=== PATIENT | male | born 1955 | race Caucasian/White ===

== ENCOUNTER 2023-12-18 06:47 | Outpatient (REF) | payer MEDICARE, SELFPAY ==
[2023-12-18 10:11] LABS: MANUAL DIFF FLAG NO
[2023-12-18 10:22] LABS: Basophils Percent Auto 0.6 % (0-2); Eosinophils Absolute Auto 0.3 X10*3/uL (0.0-0.4); Eosinophils Percent Auto 5.4 % (0-4); Hematocrit 45.4 % (42.0-52.0); Imm Gran Abs Auto 0.01 X10*3/uL (0.00-0.03); Imm Gran Pct Auto 0.2 % (0.0-0.4); Lymphocytes Absolute Auto 1.8 X10*3/uL (1.2-4.9); Lymphocytes Percent Auto 33.2 % (20-40); Mean Corpuscular Hemoglobin 30.7 pg (27.0-33.0); Mean Platelet Volume 10.1 fL (9.4-12.4); Monocytes Absolute Auto 0.4 X10*3/uL (0.1-1.2); Monocytes Percent Auto 7.4 % (2-11); Neutrophils Absolute Auto 2.9 x10*3/uL (2.0-8.3); Neutrophils Percent Auto 53.2 % (45-73); Platelet Count 233 X10*3/uL (160-400); Red Blood Count 4.88 X10*6/uL (4.60-5.80); Red Cell Distribution Width 13.7 % (11.0-16.0); White Blood Count 5.4 X10*3/uL (4.8-10.8)
[2023-12-18 10:42] LABS: Alanine Aminotransferase 31 U/L (0-40); Albumin Level 4.2 g/dL (3.5-5.0); Alkaline Phosphatase 73 U/L (39-117); Anion Gap 11 (12-20); Aspartate Amino Transferase 20 U/L (5-37); Bilirubin Total 0.4 mg/dL (0.0-1.0); Blood Urea Nitrogen 19 mg/dL (9-16); Calcium 9.5 mg/dL (8.4-10.2); Carbon Dioxide 27 mmol/L (22-29); Chloride 107 mmol/L (96-108); Cholesterol 143 mg/dL (<200); Estimated Glomerular Filt Rate > 60; Glucose Fasting 88 mg/dL (60-99); HDL Cholesterol 46 mg/dL (>40); LDL Cholesterol Calculated 77 mg/dL (<100); Potassium 3.9 mmol/L (3.3-5.1); Sodium 141 mmol/L (135-145); Total Protein 7.1 g/dL (6.5-8.0); Triglycerides 104 mg/dL (<150)
[2023-12-18 10:54] LABS: Prostate Specific Antigen 3.46 ng/mL (<0.05-4.0)
== END 2023-12-18 06:48 | disposition home or self-care (01) ==
LOC: HO.HMGCLDS 06:47
PROVIDERS: PCP Internal Medicine; Visit Provider Internal Medicine
DX: Z00.00 Encounter for general adult medical examination without abnormal findings (principal); R53.83 Other fatigue; E78.5 Hyperlipidemia, unspecified; Z12.5 Encounter for screening for malignant neoplasm of prostate
CPT/HCPCS: 36415; 80053; 80061; 84153; 85025

== ENCOUNTER 2025-01-21 08:30 | Outpatient (AMB) | payer MEDICARE, SELFPAY ==
--- NOTE | 2025-01-21 08:44 | A.OFFPC_ITS ---
Vital Signs 01/21/25 08:50 Height 5 ft 10.47 in Weight 205 lb BMI 29.0 BP 153/79 H Blood Pressure Location Rt femoral Position Sitting Respiration 17 Pulse 63 Pulse Source Pulse Oximeter Temp 97.3 F Temp Source Temporal Artery Scan Pulse Oximetry (%) 96 Oxygen Delivery Method Room Air Intake Visit Reasons: physical Children'S Aide Required: No Accompanied by: Self / Same As Patient Allergies Penicillins Allergy (Intermediate, Verified 01/21/25 08:46) HALLUCIATIONS penicillin V Allergy (Unknown, Verified 01/21/25 08:46) hives Tobacco use date assessed: 01/21/25 Fall risk assessment: No Falls in past year Last assessed Fall Risk: 01/21/25 Dental Screening Dental Screen Date: 01/21/25 Did you have a dental visit in the last 12 months?: Yes Did you have a dental problem in the last 6 months where you did not have access to dental care?: No Was dental information given to patient?: Patient has dentist [facility] Medical History (Updated 01/21/25 @ 09:15 by Pierre Wheeler MD) Headache Hyperlipidemia Surgical History (Updated 12/02/24 @ 14:12 by Jud Alvarez) History of colonoscopy (~06/01/15) Family History (Updated 01/21/25 @ 08:48 by Dom Gonzales MA) Father Heart attack Mother History of angina Social History (Updated 01/21/25 @ 08:49 by Dom Gonzales MA) Housing: House Alcohol intake: current Alcohol intake frequency: holidays/special occasions only Patient Tobacco Use Status: Never used Tobacco service: No Current occupational status: retired Cognitive needs: No Hearing needs: No Vision needs: Yes (rx glasses) Questionnaire PHQ-9 Over the last 2 weeks, how often have you been bothered by any of the following problems? 1. Little interest or pleasure in doing things: not at all 2. Feeling down, depressed, or hopeless: not at all 3. Trouble falling or staying asleep, or sleeping too much: not at all 4. Feeling tired or having little energy: not at all 5. Poor appetite or overeating: not at all 6. Feeling bad about yourself - or that you are a failure or have let yourself or your family down: not at all 7. Trouble concentrating on things, such as reading the newspaper or watching television: not at all 8. Moving or speaking so slowly that other people could have noticed. Or the opposite - being so fidgety or restless that you have been moving around a lot more than usual: not at all 9. Thoughts that you would be better off or of hurting yourself in some way: not at all Total score: 0 Source: Developed by Drs. Justin Wayne, Lauren Ceballos, Rivas Mcnamara and colleagues, with an educational diya from [employer]. Thrive Questionnaire Date Thrive assessed: 01/21/25 I am a: Patient What is your living situation today?: I have a steady place to live Within the past 12 months, did the food you bought not last and you didn't have the money to get more?: Never true Within the past 12 months, did you worry whether your food would run out before you got money to buy more?: Never true Do you have trouble paying for medicines?: No Do you have trouble getting transportation to medical appointments?: No Do you have trouble paying your heating and electricity bill?: No Do you have trouble taking care of your child, family member or friend?: No Do you have trouble with day-to-day activities such as bathing, preparing meals, shopping, managing finances, etc.?: No Are you currently unemployed and looking for a job?: No Are you interested in more education?: No Please select the resources that you would like help with: None Currently or been in a relationship where the following occur: No concerns reported THRIVE Score: 0 AUDIT C Alcohol Use Questionnaire (AUDIT-C) 1. How often do you have a drink containing alcohol?: Monthly or less 2. How many drinks containing alcohol do you have on a typical day when you are drinking?: 1 or 2 3. How often do you have six or more drinks on one occasion?: Never Total Score: 1 BEATRIZ-7 AMB Questionnaire BEATRIZ-7 Date BEATRIZ - 7 assessed: 01/21/25 Feeling nervous, anxious, or on edge: 0 = Not at all Not being able to stop or control worryin = Not at all Worrying too much about different things: 0 = Not at all Trouble relaxin = Not at all Being so restless that it is hard to sit still: 0 = Not at all Becoming easily annoyed or irritable: 0 = Not at all Feeling afraid as if something awful might happen: 0 = Not at all Total BEATRIZ-7 score (0-4 normal; 5-9 mild; 10-14 moderate; 15-21 severe): 0 Source: Developed by Drs. Justin Wayne, Lauren Ceballos, Rivas Mcnamara and colleagues, with an educational diya from [employer]. Physical exam (Primary Care) Vital Signs: Last Vital Signs Temp 97.3 F 01/21/25 08:50 Pulse 63 01/21/25 08:50 Resp 17 01/21/25 08:50 BP 153/79 H 01/21/25 08:50 Pulse Ox 96 01/21/25 08:50 Oxygen Delivery Method Room Air 01/21/25 08:50 BMI result Body Mass Index 29.0 Tobacco/Smoking Status: Tobacco use Status Tobacco use date assessed 01/21/25 01/21/25 08:52 Patient Tobacco Use Status Never used Tobacco 01/21/25 08:52 PHQ-9: PHQ-9 Score PHQ-9: Total score 0 01/21/25 08:52 Thrive Assessment: Date of Thrive Assessment Date Thrive assessed 01/21/25 01/21/25 08:52 Currently or been in a relationship where the following occur: No concerns reported Coding Level of Care Code New Pt Level 4 (52545) New Pt Prev Care >65yr (10690) Diagnoses Hyperlipidemia E78.5 Headache R51.9 Assessment & Plan Assessment & Plan (1) Hyperlipidemia: Code(s): E78.5 - Hyperlipidemia, unspecified Category: Medical Plan: BW has been ordered. Will call with results (2) Headache: Code(s): R51.9 - Headache, unspecified Category: Medical Plan: CT head ordered. Trial of Meloxicam. Patient will report via portal about his symptoms Plan History of Present Illness - The patient is a 69-year-old male presenting with headaches and requesting a physical - He experiences headaches three to four times weekly, less severe than previous migraines, which were managed with medication from Dr. Peterson. - Current management includes Tylenol, effective if taken early, sometimes requiring a second dose. - Denies vision changes or sleep disturbances due to headaches, though occasionally wakes with a headache. - No recent testing for headaches. - Previously took statins, stopped due to side effects and borderline cholesterol. - Regular prostate checks normal; colonoscopy in 2016, Cologuard planned next year. Social History - Employment: Previously worked in a [employer], involving heavy lifting, which contributed to good physical condition. Review of Systems - Neurological: Reports headaches three to four times a week, less intense than migraines. Denies changes in vision or sleep disturbances due to headaches. Physical Exam General: Cooperative and healthy appearing Nutritional Appearance: Well nourished Orientation/consciousness: Patient oriented x3 Limitations: No limitations Head: Normal to inspection General: Appearance normal, both eyes and all related structures Neck: Normal visual inspection Chest: Normal palpation of entire chest wall Respiratory: N ormal respiratory effort Neurology: Patient oriented x3, reports frequent headaches occurring three to four times a week, with migraines reduced to once a month. Headaches are less intense than migraines and do not interrupt sleep. Tylenol is effective if taken early. CT of the head ordered to investigate headaches further. Results Plan 1. Headaches - Plan includes a CT scan of the head without contrast to exclude any underlying pathology. - Prescribe medication to be taken at the onset of headaches. 2. Migraine - Previously managed with medication from Dr. Peterson, currently using Tylenol as needed. Discussion Notes I discussed with the patient the plan to perform a CT scan of the head to rule out any serious underlying conditions causing the headaches. I explained that the scan is a simple procedure without contrast and should take about 10 minutes. Additionally, I will prescribe medication to be taken at the onset of headaches to manage symptoms effectively. We also discussed the importance of monitoring cholesterol levels and the plan for a Cologuard test next year for colon cancer screening. Patient Instructions - Schedule and complete a CT scan of the head as advised. - Take prescribed medication at the onset of headaches. - Complete fasting blood work as discussed. - Plan for a Cologuard test next year for colon cancer screening. Orders: Orders Complete Blood Count no Diff Today E78.5 - Hyperlipidemia, unspecified Lipid Panel Today E78.5 - Hyperlipidemia, unspecified Thyroid Stimulating Hormone Today E78.5 - Hyperlipidemia, unspecified UA and rflx microscopic Today E78.5 - Hyperlipidemia, unspecified Basic Metabolic Panel Today E78.5 - Hyperlipidemia, unspecified Liver Panel Today E78.5 - Hyperlipidemia, unspecified Prostate Specific Antigen Scr Today E78.5 - Hyperlipidemia, unspecified CT head/brain wo IV con Today R51.9 - Headache, unspecified Medications: New meloxicam 15 mg PO DAILY 14 tabs 0RF
[2025-01-21 08:50] VITALS: BP 153/79; PULSE 63; RESP 17; TEMP 36.3; O2SAT 96; BMI 29.0
--- OUTSIDE RECORDS SUMMARY | 2025-01-21 09:07 | XMS_ITS | Encounter Summary ---
Author Organization [facility] Address [address] [place] [address] Phone Care Team Providers Care Track Greaser Name Role Phone Jay Jay Peterson MD Primary Care Provider +1- [phone] Encounter Details Date Type Department Care Team (Late st Contact Info) Description 08/30/2022 Procedure Pass JOSHUA LW PERIOP DEPT [address] [place] [address] Social History Tobacco Use Types Packs/Day Years Used Date Smoking Tobacco: Never Smokeless Tobacco: Never Sex and Gender Information Value Date Recorded Sex Assigned at Not on file Legal Sex Male 11:52 AM EDT Gender Identity Not on file Sexual Orientation Not on file documented as of this encounter Plan of Treatment Not on file documented as of this encounter Visit Diagnoses Not on filedocumented in this encounter Care Teams Track Greaser Relationship Specialty Start Date End Date Jay Jay Peterson MD [address] [place] [address] PCP - General Internal Medicine 08/09/22 documented as of this encounter Additional Source Comments The information contained in this document represents components of the legal health record. It is not the complete legal health record.[facility]
--- OUTSIDE RECORDS SUMMARY | 2025-01-21 09:07 | XMS_ITS | Patient Health Record ---
Author Organization [facility] Address [address] [place] [address] Care Team Providers Care Airworthiness Safety Inspector Name Role Phone Kristen (RETIRED) Jay Jay KAY Primary Care Provider Unavailable Justin Montgomery Unavailable [phone] Allergies Allergen (clinical drug ingredient) Drug/Non Drug Allergy documented on EMR Reaction Allergy Type Onset Date Status Penicillin Unknown Drug Allergy Active Reason For Referral No Information Medications Medication SIG (Take, Route, Frequency, Duration) Notes Start Date End Date Status Fioricet 50-300-40 MG 1 capsule as neede d Orally every 4 hrs twice a month for H/A Active Suprep Bowel Prep 1 kit as directed Orally as directed for 1 dose 02/18/2015 Active Problems Problem Type SNOMED Code ICD Code Onset Dates Problem Status W/U Status Risk Notes Problem Pre-surgery evaluation (806052620) Other specified pre-operative examination (V72.83) Active confirmed Problem Colon cancer screening (V76.51) Active confirmed Plan Of Treatment Future Test Test Name Order Date COLONOSCOPY 02/18/2015 Insurance Providers Payer Name Payer Address Payer Phone Subscriber Number Group Number Insured Name Patient Relationship to Insured Coverage Start Date Coverage End Date [facility] [employer] PROFESSIONAL CLAIMS [address] [place] [address] [phone] [id number] [address] Self - patient is the insured Medical (General) History Medical History History ICD Code Denies [place],DM,CVA,Lung disease,renal dise ase Neg screening colonoscopy in 2004 with Richie Laguna. Surgical History Surgery Date(Month/Year) vasectomy 1980 hernia repair-left inguinal 2009
--- OUTSIDE RECORDS SUMMARY | 2025-01-21 09:07 | XMS_ITS | Clinical Summary ---
Author Organization [facility] Address [address] [place] [address] Phone Care Team Providers Care Rn Relief Charge Name Role Phone Jay Jay Peterson MD Primary Care Provider +1- [phone] Allergies Active Allergy Reactions Criticality Noted Date Comments Penicillins 08/11/2022 Medications amitriptyline (ELAVIL) 25 MG tablet 07/26/2022 Active atorvastatin (LIPITOR) 10 MG tablet 06/01/2022 Active brimonidine (ALPHAGAN) 0.2 % ophthalmic solution Place 1 drop into the right eye 2 (two) times a day. 07/28/2022 Active dorzolamide-darin oloL (COSOPT) 22.3-6.8 mg/mL ophthalmic solution Place 1 drop into the right eye 2 (two) times a day. 06/02/2022 Active latanoprost (XALATAN) 0.005 % ophthalmic solution Place 1 drop into the right eye nightly at bedtime. 07/12/2022 Active RHOPRESSA 0.02 % ophthalmic solution Place 1 drop into the right eye nightly at bedtime. 07/28/2022 Active acetaZOLAMIDE (DIAMOX) 500 mg capsule Take 1 capsule (500 mg total) by mouth 2 (two) times a day. 30 capsule 1 08/11/2022 Active Active Problems No known active problems Family History Medical History Relation Comments Glaucoma Father Relation Status Comments Father Social History Tobacco Use Types Packs/Day Years Used Date Smoking Tobacco: Never Smokeless Tobacco: Never Tobacco Cessation:Counseling Given: Not Answered Education Answer Date Recorded Are you interested in more education? Not on tod e 09/17/2022 Are you concerned about learning? Not on file 09/17/2022 No 09/17/2022 No 09/17/2022 Digital Access Answer Date Recorded No 10/16/2022 No 10/16/2022 No 10/16/2022 Reliable internet access at home? Not on file 10/16/2022 Device with a working camera? Not on file Sex and Gender Information Value Date Recorded Sex Assigned at Not on file Legal Sex Male 11:52 AM EDT Gender Identity Not on file Sexual Orientation Not on file Plan of Treatment Health Maintenance Due Date Last Done Comments Adult Td,Tdap Booster 1953 LIPID PANEL 1953 DEPRESSION SCREENING 1965 HEPATITIS C SCREENING 11/11/1971 COLOGUARD 1998 COLONOSCOPY 1998 COLORECTAL CANCER SCREENING 1998 FIT TEST 1998 FOBT 1998 SIGMOIDOSCOPY 1998 VIRTUAL COLONOSCOPY 1998 PNEUMOCOCCAL VACCINES (50+ y ears) (1 of 1 - PCV) 11/11/2003 ZOSTER VACCINES (1 of 2) 11/11/2003 COVID-19 VACCINE ( - 2023-2 5 season) 2024 RSV VACCINE (1 - 1-dose 75+ series) 2028 SMOKING STATUS SCREENING (On ce After 26 Yrs) Completed 08/11/2022 HEPATITIS A VACCINES Aged Out No long er eligible based on patient's age to complete this topic HIB VACCINES Aged Out No longer eligi ble based on patient's age to complete this topic MENINGOCOCCAL VACCINES (ACWY) Aged Out No longer eligible based on patient's age to complete this topic MENINGOCOCCAL VACCINES (B) Aged Out N o longer eligible based on patient's age to complete this topic Medical Devices Not on file Insurance [place] BLUE REPLACEMENT [facility] MEDICARE HMO BLUE REPLACEMENT [facility] MEDICARE O BLUE REPLACEMENT Care Teams Rn Relief Charge Relationship Specialty Start Date End Date Jay Jay Peterson MD [address] [place] [address] PCP - General Internal Medicine 08/09/22 Additional Source Comments The information contained in this document represents components of the legal health record. It is not the complete legal health record.[facility]
== END 2025-01-21 09:19 | disposition home or self-care (01) ==
LOC: HO.HMCSH 08:30
PROVIDERS: PCP Internal Medicine; Visit Provider Internal Medicine
DX: E78.5 Hyperlipidemia, unspecified (principal); R51.9 Headache, unspecified; Z00.00 Encounter for general adult medical examination without abnormal findings

== ENCOUNTER → 2025-01-21 08:30 | Outpatient (BNVA) | payer MEDICARE, SELFPAY | PROVIDERS: PCP Internal Medicine; Visit Provider Internal Medicine | DX: Z00.00 Encounter for general adult medical examination without abnormal findings (principal); E78.5 Hyperlipidemia, unspecified; G43.909 Migraine, unspecified, not intractable, without status migrainosus | CPT/HCPCS: 96127; 99202; 99387 ==

== ENCOUNTER 2025-01-22 07:06 | Outpatient (REF) | payer MEDICARE, SELFPAY ==
--- OUTSIDE RECORDS SUMMARY | 2025-01-22 07:07 | XMS_ITS | Clinical Summary ---
Author Organization [facility] Address [address] [place] [address] Phone Care Team Providers Care Dietary Assistant Name Role Phone Jay Jay Peterson MD Primary Care Provider +1- [phone] Allergies Active Allergy Reactions Criticality Noted Date [...] [place] BLUE REPLACEMENT [facility] MEDICARE HMO BLUE REPLACEMENT [facility] MEDICARE O BLUE REPLACEMENT Care Teams Dietary Assistant Relationship Specialty Start Date End Date Jay Jay Peterson MD [address] [place] [address] PCP - General Internal Medicine 08/09/22 Additional Source Comments The information contained in this document represents components of the legal health record. It is not the complete legal health record.[facility]
--- OUTSIDE RECORDS SUMMARY | 2025-01-22 07:07 | XMS_ITS | Encounter Summary ---
Author Organization [facility] Address [address] [place] [address] Phone Care Team Providers Care Phlebotomy Tech Name Role Phone Jay Jay Peterson MD Primary Care Provider +1- [phone] Encounter Details Date Type Department Care Team (Late st Contact Info) Description 08/30/2022 Procedure Pass JOSHUA LW PERIOP DEPT [address] [place] [address] Social History Tobacco Use Types Packs/Day Years [...] on filedocumented in this encounter Care Teams Phlebotomy Tech Relationship Specialty Start Date End Date Jay Jay Peterson MD [address] [place] [address] PCP - General Internal Medicine 08/09/22 documented as of this encounter Additional Source Comments The information contained in this document represents components of the legal health record. It is not the complete legal health record.[facility]
--- OUTSIDE RECORDS SUMMARY | 2025-01-22 07:07 | XMS_ITS | Patient Health Record ---
Author Organization [facility] Address [address] [place] [address] Care Team Providers Care Line Repairer Name Role Phone Kristen (RETIRED) Jay Jay KAY Primary Care Provider Unavailable Justin Montgomery Unavailable [phone] Allergies Allergen (clinical drug ingredient) Drug/Non Drug [...] W/U Status Risk Notes Problem Pre-surgery evaluation (669509947) Other specified pre-operative examination (V72.83) Active confirmed Problem Colon cancer screening (V76.51) Active confirmed Plan Of Treatment Future Test Test Name Order Date COLONOSCOPY 02/18/2015 Insurance Providers Payer Name Payer Address Payer Phone Subscriber Number Group Number Insured Name Patient Relationship to Insured Coverage Start Date Coverage End Date [facility] [employer] PROFESSIONAL CLAIMS [address] [place] [address] [id number] [address] Self - patient is the insured Medical (General) History Medical History History ICD Code Denies [place],DM,CVA,Lung disease,renal dise ase Neg screening colonoscopy in 2004 with Richie Laguna. Surgical History Surgery Date(Month/Year) vasectomy 1980 hernia repair-left inguinal 2009
[2025-01-22 10:22] LABS: Hematocrit 45.7 % (42.0-52.0); Hemoglobin 15.2 g/dl (14.0-18.0); Mean Corpuscular HGB Conc 33.3 g/dl (31.0-36.0); Mean Corpuscular Hemoglobin 30.9 pg (27.0-33.0); Mean Corpuscular Volume 92.9 fL (80.0-98.0); NRBC Abs Auto 0.000 X10*3/uL (0.0-0.012); NRBC Pct Auto 0.0 /100WBC (0.0-0.2); Platelet Count 227 X10*3/uL (160-400); Red Blood Count 4.92 X10*6/uL (4.60-5.80); White Blood Count 5.0 X10*3/uL (4.8-10.8)
[2025-01-22 10:26] LABS: Appearance Urine Clear; Glucose Urine UA Negative (Negative); PH 6.5 (5.0-9.0); Specific Gravity - Urine >= 1.030 (1.005-1.025)
[2025-01-22 10:42] LABS: Alanine Aminotransferase 28 U/L (0-40); Albumin Level 4.2 g/dL (3.5-5.0); Alkaline Phosphatase 57 U/L (39-117); Anion Gap 10 (12-20); Aspartate Amino Transferase 32 U/L (5-37); Blood Urea Nitrogen 21 mg/dL (9-16); Calcium 9.1 mg/dL (8.4-10.2); Carbon Dioxide 27 mmol/L (22-29); Chloride 108 mmol/L (96-108); Cholesterol 225 mg/dL (<200); Estimated Glomerular Filt Rate > 60; HDL Cholesterol 46 mg/dL (>40); Potassium 4.2 mmol/L (3.3-5.1); Sodium 141 mmol/L (135-145); Total Protein 6.8 g/dL (6.5-8.0); Triglycerides 160 mg/dL (<150)
[2025-01-22 11:02] LABS: Thyroid Stimulating Hormone 6.14 uIU/mL (0.32-4.0)
== END 2025-01-22 07:07 | disposition home or self-care (01) ==
LOC: HO.HMGCLDS 07:06
PROVIDERS: PCP Internal Medicine; Visit Provider Internal Medicine
DX: E78.5 Hyperlipidemia, unspecified (principal); Z12.5 Encounter for screening for malignant neoplasm of prostate
CPT/HCPCS: 36415; 80048; 80061; 80076; 81003; 84153; 84443; 85027

== ENCOUNTER 2025-04-04 07:11 | Outpatient (REF) | payer MEDICARE, SELFPAY ==
--- NOTE | ~2025-04-04 | CT_ITS ---
EXAMINATION: CT HEAD WITHOUT CONTRAST CLINICAL INFORMATION: R51.9 - Headache, unspecified COMPARISON: Correlated to MRI dated November 23, 2017. TECHNIQUE: Contiguous axial imaging was performed from the skull base to vertex without intravenous administration of contrast. This CT examination was performed using dose optimization techniques as appropriate, variously including the following: *Automated exposure control *Adjustment of mA and/or kV according to patient size (this includes techniques or standardized protocols for targeted exams where dose is matched to indication/reason for exam; i.e. extremities or head) *Use of iterative reconstruction technique DLP: 761 mGy-cm FINDINGS: No acute cortical disruption within the bony calvarium or the skull base. No acute intracranial hemorrhage, mass effect, midline shift, hydrocephalus or herniation. Ramirez-white matter differentiation is normal. Posterior cranial fossa contents demonstrated no acute hemorrhage or mass effect. Craniocervical junction is intact with normal position of the cerebellar tonsils. Sellar/suprasellar region demonstrated no gross masses. Mild prominence of the extra-axial CSF spaces cerebral sulci, likely age-related. Mucosal thickening, paranasal sinuses. No gross air-fluid levels. Tympanic cavities and mastoid air cells are aerated. CT/CT head/brain wo IV con IMPRESSION: No acute intracranial hemorrhage or acute brain abnormality by CT. López paranasal sinus disease, chronic. Electronically signed by: Tim Jimenes MD 04/04/2025 08:05 AM JONE
--- OUTSIDE RECORDS SUMMARY | 2025-04-04 07:15 | XMS_ITS | Clinical Summary ---
Author Organization [facility] Address [address] [place] [address] Phone Care Team Providers Care Patient Transport Orderly Name Role Phone Jay Jay Peterson MD Primary Care Provider +1- [phone] Allergies Active Allergy Reactions Criticality Noted Date [...] 11/11/2003 ZOSTER VACCINES (1 of 2) 11/11/2003 INFLUENZA VACCINE (#1) 2024 COVID-19 VACCINE (1 - 2024-2 6 season) 2025 RSV VACCINE (1 - 1-dose 75+ series) 2028 SMOKING STATUS SCREENING (On ce After 26 Yrs) Completed 08/11/2022 HEPATITIS A VACCINES Aged Out No long er eligible based on patient's age to complete this topic HIB VACCINES Aged Out No longer eligi ble based on patient's age to complete this topic IPV VACCINES Aged Out No longer eligi ble based on patient's age to complete this topic MENINGOCOCCAL VACCINES (ACWY) Aged Out No longer eligible based on patient's age to complete this topic MENINGOCOCCAL VACCINES (B) Aged Out N o longer eligible based on patient's age to complete this topic Medical Devices Not on file Insurance (Work) [id number] MEDICARE HMO BLUE REPLACEMENT Care Teams Patient Transport Orderly Relationship Specialty Start Date End Date Jay Jay Peterson MD [address] [place] [address] PCP - General Internal Medicine 08/09/22 Additional Source Comments The information contained in this document represents components of the legal health record. It is not the complete legal health record.[facility]
--- OUTSIDE RECORDS SUMMARY | 2025-04-04 07:15 | XMS_ITS | Patient Health Record ---
Author Organization [facility] Address [address] [place] [address] Care Team Providers Care Licensed Surveyor Name Role Phone Kristen (RETIRED) Jay Jay KAY Primary Care Provider Unavailable Justin Montgomery Unavailable [phone] Allergies Allergen (clinical drug ingredient) Drug/Non Drug [...] Prep 1 kit as directed Orally as directed; Duration: 1 dose 02/18/2015 Active Problems Problem Type SNOMED Code ICD Code Onset Dates Problem Status W/U Status Risk Notes Problem Pre-surgery evaluation (992320903) Other specified pre-operative examination (V72.83) Active confirmed Problem Colon cancer screening (582184174) Colon cancer screening (V76.51) Active confirmed Plan Of Treatment Future Test Test Name Order Date COLONOSCOPY 02/18/2015 Insurance Providers Payer Name Payer Address Payer Phone Subscriber Number Group Number Insured Name Patient Relationship to Insured Coverage Start Date Coverage End Date [employer] PROFESSIONAL CLAIMS [address] [place] [address] [id number] Self - patient is the insured Medical (General) History Medical History History ICD Code Denies [place],DM,CVA,Lung disease,renal dise ase Neg screening colonoscopy in 2004 with Richie Laguna. Surgical History Surgery Date(Month/Year) vasectomy 1979 hernia repair-left inguinal 2009
--- OUTSIDE RECORDS SUMMARY | 2025-04-04 07:15 | XMS_ITS | Encounter Summary ---
Author Organization [facility] Address [address] [place] [address] Phone Care Team Providers Care Facility Maintenance Manager Name Role Phone Jay Jay Peterson MD Primary Care Provider +1- [phone] Encounter Details Date Type Department Care Team (Late st Contact Info) Description 08/30/2022 Procedure Pass JOSHUA LW PERIOP DEPT [address] [place] [address] Social History Tobacco Use Types Packs/Day Years [...] on filedocumented in this encounter Care Teams Facility Maintenance Manager Relationship Specialty Start Date End Date Jay Jay Peterson MD [address] [place] [address] PCP - General Internal Medicine 08/09/22 documented as of this encounter Additional Source Comments The information contained in this document represents components of the legal health record. It is not the complete legal health record.[facility]
== END 2025-04-04 07:12 | disposition home or self-care (01) ==
LOC: HO.CT 07:11
PROVIDERS: PCP Internal Medicine; Visit Provider Internal Medicine
DX: R51.9 Headache, unspecified (principal)
CPT/HCPCS: 70450

== ENCOUNTER → 2025-04-04 07:18 | Outpatient (BNV) | payer MEDICARE, SELFPAY | PROVIDERS: PCP Internal Medicine; Visit Provider Radiology Diagnostic Radiology | DX: R51.9 Headache, unspecified (principal); J34.89 Other specified disorders of nose and nasal sinuses | CPT/HCPCS: 70450 ==

== ENCOUNTER 2025-05-13 08:05 | Outpatient (AMB) | payer MEDICARE, SELFPAY ==
--- OUTSIDE RECORDS SUMMARY | 2025-05-13 08:08 | XMS_ITS | Clinical Summary ---
Author Organization [facility] Address [address] [place] [address] Phone Care Team Providers Care Sharemilker Name Role Phone Jay Jay Peterson MD Primary Care Provider +1- [phone] Allergies Active Allergy Reactions Criticality Noted Date [...] [place] H[place] BLUE REPLACEMENT (Work) [phone] MEDICARE HMO BLUE REPLACEMENT Care Teams Sharemilker Relationship Specialty Start Date End Date Jay Jay Peterson MD [address] [place] [address] PCP - General Internal Medicine 08/09/22 Additional Source Comments The information contained in this document represents components of the legal health record. It is not the complete legal health record.[facility]
--- OUTSIDE RECORDS SUMMARY | 2025-05-13 08:08 | XMS_ITS | Patient Health Record ---
Author Organization [facility] Address [address] [place] [address] Care Team Providers Care Silk Worker Name Role Phone Kristen (RETIRED) Jay Jay KAY Primary Care Provider Unavailable Justin Montgomery Unavailable [phone] Allergies Allergen (clinical drug ingredient) Drug/Non Drug Allergy documented on EMR Reaction Allergy Type Onset Date Status Penicillin Unknown Drug Allergy Active Reason For Referral No Information Medications Medication SIG (Take, Route, Frequency, Duration) Notes Start Date End Date Status MoviPrep 100 GM Solution as directed Orally as directed; Duration: 1 dose 02/18/2015 Active Fioricet 50-300-40 MG Capsule 1 capsule as needed Orally every 4 hrs twice a month for H/A Active Suprep Bowel Prep 1 kit Solution as directed Orally as directed; Duration: 1 dose 02/18/2015 Active Social History Social History Additional Details Category Social Info Options Details Miscellaneous: Marital status: 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 ---[employer] Section Notes: Nonsmoker; no sig alcohol Problems Problem Type SNOMED Code ICD Code Onset Dates Problem Status W/U Status Risk Notes Problem Pre-surgery evaluation (266353472) Other specified pre-operative examination (V72.83) Active confirmed Problem Colon cancer screening (508868749) Colon cancer screening (V76.51) Active confirmed Plan Of Treatment Future Test Test Name Order Date COLONOSCOPY 02/18/2015 Insurance Providers Payer Name Payer Address Payer Phone Subscriber Number Group Number Insured Name Patient Relationship to Insured Coverage Start Date Coverage End Date [facility] [address] [place] [address] [id number] [address] Self - patient is the insured Medical (General) History Medical History History ICD Code Denies CT,DM,CVA,Lung disease,renal dise ase Neg screening colonoscopy in 2004 with Richie Laguna. Surgical History Surgery Date(Month/Year) vasectomy 1979 hernia repair-left inguinal 2009
--- OUTSIDE RECORDS SUMMARY | 2025-05-13 08:08 | XMS_ITS | Encounter Summary ---
Author Organization [facility] Address [address] [place] [address] Phone Care Team Providers Care Space Engineer Name Role Phone Jay Jay Peterson MD Primary Care Provider [phone]- [phone] Encounter Details Date Type Department Care Team (Late st Contact Info) Description 08/30/2022 Procedure Pass JOSHUA LW PERIOP DEPT [address] [place] [address] Social History Tobacco Use Types Packs/Day Years [...] on filedocumented in this encounter Care Teams Space Engineer Relationship Specialty Start Date End Date Jay Jay Peterson MD [address] [place] [id number] PCP - General Internal Medicine 08/09/22 documented as of this encounter Additional Source Comments The information contained in this document represents components of the legal health record. It is not the complete legal health record.[facility]
[2025-05-13 08:31] VITALS: BP 126/72; PULSE 60; RESP 14; TEMP 36.2; O2SAT 94; BMI 29.2
--- NOTE | 2025-05-13 08:31 | A.OFFPC_ITS ---
Vital Signs 05/13/25 08:31 Height 5 ft 10.47 in Weight 206 lb BMI 29.2 BP 126/72 Blood Pressure Location Lt brachial Position Sitting Respiration 14 Pulse 60 Pulse Source Pulse Oximeter Temp 97.2 F Temp Source Temporal Artery Scan Pulse Oximetry (%) 94 Oxygen Delivery Method Room Air Intake Visit Reasons: Skin follow up Automation Consultant Required: No Accompanied by: Self / Same As Patient Allergies Penicillins Allergy (Intermediate, Verified 05/13/25 08:59) HALLUCIATIONS penicillin V Allergy (Unknown, Verified 05/13/25 08:59) hives Medication List - Last Reconciled 05/13/25 by Pierre Wheeler MD No Known Home Meds Tobacco use date assessed: 01/21/25 Dental Screening Dental Screen Date: 01/21/25 HPI HPI Comments History of Present Illness Details History of Present Illness - The patient is a 69 year old male pres enting for follow-up on abnormal thyroid levels and evaluation of skin lesions. - The patient was last seen in January for headaches, at which time blood work revealed low thyroid levels. - He has not started any medication due to a dislike of taking medications and has instead been consuming [place] nuts for the past month after researching a possible link between headaches and selenium deficiency; he reports having only one headache in the past month. - The patient expresses concern about se veral spots on his skin, noting two brow n papules on his left hand and another that sometimes becomes larger and itchy. - He has a family history of skin cancer , as both of his brothers and his have been treated for it. - He reports that his dentist recently f ound a cyst under his tongue. Social History - Tobacco: The patient denies any histor y of smoking or chewing tobacco. - Family: The patient has two children, four grandchildren, and one great- grandchild. Results - Labs: Previous blood work from showed a low thyroid level. [facility] Medical History (Updated 05/13/25 @ 08:51 by Pierre Wheeler MD) Hypothyroidism Headache Hyperlipidemia Surgical History History of colonoscopy (~06/01/15) Family History Father Heart attack Mother History of angina Social History Housing: House Alcohol intake: current Alcohol intake frequency: holidays/special occasions only Patient Tobacco Use Status: Never used Tobacco service: No Current occupational status: retired Cognitive needs: No Hearing needs: No Vision needs: Yes (rx glasses) Questionnaire PHQ-9 Over the last 2 weeks, how often have you been bothered by any of the following problems? 1. Little interest or pleasure in doing things: not at all 2. Feeling down, depressed, or hopeless: not at all 3. Trouble falling or staying asleep, or sleeping too much: not at all 4. Feeling tired or having little energy: not at all 5. Poor appetite or overeating: not at all 6. Feeling bad about yourself - or that you are a failure or have let yourself or your family down: not at all 7. Trouble concentrating on things, such as reading the newspaper or watching television: not at all 8. Moving or speaking so slowly that other people could have noticed. Or the opposite - being so fidgety or restless that you have been moving around a lot more than usual: not at all 9. Thoughts that you would be better off or of hurting yourself in some way: not at all Total score: 0 Source: Developed by Drs. Justin Wayne, Lauren Ceballos, Rivas Mcnamara and colleagues, with an educational diya from [employer]. Thrive Questionnaire Date Thrive assessed: 01/21/25 I am a: Patient What is your living situation today?: I have a steady place to live Within the past 12 months, did the food you bought not last and you didn't have the money to get more?: Never true Within the past 12 months, did you worry whether your food would run out before you got money to buy more?: Never true Do you have trouble paying for medicines?: No Do you have trouble getting transportation to medical appointments?: No Do you have trouble paying your heating and electricity bill?: No Do you have trouble taking care of your child, family member or friend?: No Do you have trouble with day-to-day activities such as bathing, preparing meals, shopping, managing finances, etc.?: No Are you currently unemployed and looking for a job?: No Are you interested in more education?: No Please select the resources that you would like help with: None Currently or been in a relationship where the following occur: No concerns reported THRIVE Score: 0 AUDIT C Alcohol Use Questionnaire (AUDIT-C) 1. How often do you have a drink containing alcohol?: Monthly or less 2. How many drinks containing alcohol do you have on a typical day when you are drinking?: 1 or 2 3. How often do you have six or more drinks on one occasion?: Never Total Score: 1 BEATRIZ-7 AMB Questionnaire BEATRIZ-7 Date BEATRIZ - 7 assessed: 01/21/25 Feeling nervous, anxious, or on edge: 0 = Not at all Not being able to stop or control worryin = Not at all Worrying too much about different things: 0 = Not at all Trouble relaxin = Not at all Being so restless that it is hard to sit still: 0 = Not at all Becoming easily annoyed or irritable: 0 = Not at all Feeling afraid as if something awful might happen: 0 = Not at all Total BEATRIZ-7 score (0-4 normal; 5-9 mild; 10-14 moderate; 15-21 severe): 0 Source: Developed by Drs. Justin Wayne, Lauren Ceballos, Rivas Mcnamara and colleagues, with an educational diya from [employer]. Review of Systems Narrative Review of Systems - Neurological: Reports a history of headaches, which have improved significantly over the past month. - Integumentary: Reports two brown spots and another sometimes-enlarging spot on his left hand, which can be pruritic. - Denies bleeding from the lesions. - HEENT: Reports a cyst under the tongue noted by his dentist. - Endocrine: Denies cold intolerance or hair loss. - Constitutional: Denies fatigue. - Gastrointestinal: Denies constipation. Physical exam (Primary Care) Vital Signs: Last Vital Signs Temp 97.2 F 05/13/25 08:31 Pulse 60 05/13/25 08:31 Resp 14 05/13/25 08:31 BP 126/72 05/13/25 08:31 Pulse Ox 94 05/13/25 08:31 Oxygen Delivery Method Room Air 05/13/25 08:31 BMI result Body Mass Index 29.2 Tobacco/Smoking Status: Tobacco use Status Tobacco use date assessed 01/21/25 05/13/25 08:38 Patient Tobacco Use Status Never used Tobacco 05/13/25 08:38 PHQ-9: PHQ-9 Score PHQ-9: Total score 0 05/13/25 08:38 Thrive Assessment: Date of Thrive Assessment Date Thrive assessed 01/21/25 05/13/25 08:38 Currently or been in a relationship where the following occur: No concerns reported Narrative Physical Exam General: Cooperative and healthy appearing Nutritional Appearance: Well nourished Orientation/consciousness: Patient oriented x3 Limitations: No limitations Head: Normal to inspection General: Appearance normal, both eyes and all related structures Neck: Normal visual inspection Chest: Normal palpation of entire chest wall Respiratory: Normal respiratory effort Neurology: Patient oriented x3 Office Procedures Flu Questionnaire Does the patient have a severe egg allergy?: No Does the patient have severe life threatening allergies?: No Does the patient have a fever or illness today?: No Has the patient ever had Guillain-[place] Syndrome?: No Has the patient ever had any past reaction to a flu shot?: No Immunizations Fluarix [id number] (PF) 45 mcg (15 mcg x 3)/0.5 mL IM syringe Performing Provider: Pierre Wheeler MD [place] [facility] [place] [facility] Documented (not given) by: SABI Collado on 05/13/25 08:40 Reason Not Given: Patient Refused Coding Level of Care Code Est Pt Level 4 (68190) Add On Problem Visit Only Diagnoses Hypothyroidism E03.9 Atypical nevi D22.9 Assessment & Plan Assessment & Plan (1) Hypothyroidism: Code(s): E03.9 - Hypothyroidism, unspecified Category: Medical (2) Atypical nevi: Code(s): D22.9 - Melanocytic nevi, unspecified Plan Plan - Will order repeat thyroid lab work to reassess levels. - Will discuss the results with the patient and re-evaluate the need for medication, which would be started at the lowest dose if initiated. - Will place a referral to dermatology for evaluation and probable excision of the skin lesions on his left hand. - Reassured the patient that the sublingual cyst found by his dentist is not a concern. Discussion Notes I discussed the patient's low thyroid level from his visit in January and explained that it is not related to his headaches. I educated him on the function of the thyroid gland and the potential future symptoms of untreated hypothyroidism, such as fatigue, constipation, cold intolerance, and hair loss. We agreed to repeat the labs, and I will support his decision on whether to start medication after we have the results, emphasizing that if he does start, he should take it consistently. I examined the skin lesions on his hand and noted that while they do not appear cancerous, I recommend evaluation by a consultative sales associate for definitive diagnosis and potential biopsy given his family history. I have placed a referral for th is. Finally, I reassured him that the sublingual cyst noted by his dentist is not a cause for concern. Patient Instructions - Please go to the lab to have your thyroid blood work redone. - You do not need to fast for this test. - We will discuss the results and decide on whether to start thyroid medication. - My office will send a referral to a risk adjustment specialist (consultative sales associate) for the spots on your hand. - They will contact you to set up an appointment. - The cyst under your tongue is not a cause for concern. - Please contact our office if you have any trouble with the dermatology referral. Orders: Orders Influenza [id number] Immunization Today Z23 - Encounter for immunization Thyroid Stimulating Hormone Today E03.9 - Hypothyroidism, unspecified Referrals Dermatology Referral D22.9 - Melanocytic nevi, unspecified
== END 2025-05-13 08:59 | disposition home or self-care (01) ==
LOC: HO.HMCSH 08:05
PROVIDERS: PCP Internal Medicine; Visit Provider Internal Medicine
DX: E03.9 Hypothyroidism, unspecified (principal); D22.9 Melanocytic nevi, unspecified; Z23 Encounter for immunization

== ENCOUNTER → 2025-05-13 08:05 | Outpatient (BNVA) | payer MEDICARE, SELFPAY | PROVIDERS: PCP Internal Medicine; Visit Provider Internal Medicine | DX: Z28.21 Immunization not carried out because of patient refusal (principal); D22.9 Melanocytic nevi, unspecified; E03.9 Hypothyroidism, unspecified | CPT/HCPCS: 90471; 96127; 99212 ==

== ENCOUNTER 2025-05-16 10:10 | Outpatient (REF) | payer MEDICARE, SELFPAY ==
--- OUTSIDE RECORDS SUMMARY | 2025-05-16 10:13 | XMS_ITS | Clinical Summary ---
Author Organization [facility] Address [address] [place] [address] Phone Care Team Providers Care Drilling Manager Name Role Phone Jay Jay Peterson MD Primary Care Provider +1- [phone] Allergies Active Allergy Reactions Criticality Noted Date [...] [place] (Work) [phone] MEDICARE HMO BLUE REPLACEMENT Care Teams Drilling Manager Relationship Specialty Start Date End Date Jay Jay Peterson MD [address] [place] [address] PCP - General Internal Medicine 08/09/22 Additional Source Comments The information contained in this document represents components of the legal health record. It is not the complete legal health record.[facility]
--- OUTSIDE RECORDS SUMMARY | 2025-05-16 10:13 | XMS_ITS | Patient Health Record ---
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[employer] Section Notes: Nonsmoker; no sig alcohol Problems Problem Type SNOMED Code ICD Code Onset Dates Problem Status W/U Status Risk Notes Problem Pre-surgery evaluation (557530696) Other specified pre-operative examination (V72.83) Active confirmed Problem Colon cancer screening (267428368) Colon cancer screening (V76.51) Active confirmed Plan Of Treatment Future Test Test Name Order Date COLONOSCOPY 02/18/2015 Insurance Providers Payer Name Payer Address Payer Phone Subscriber Number Group Number Insured Name Patient Relationship to Insured Coverage Start Date Coverage End Date [facility] [address] [place] [address] [id number]ORIO Self - patient is the insured Medical (General) History Medical History History ICD Code Denies [place],DM,CVA,Lung disease,renal dise ase Neg screening colonoscopy in 2004 with Richie Laguna. Surgical History Surgery Date(Month/Year) vasectomy 1979 hernia repair-left inguinal 2009
--- OUTSIDE RECORDS SUMMARY | 2025-05-16 10:13 | XMS_ITS | Encounter Summary ---
Author Organization [facility] Address [address] [place] [address] Phone Care Team Providers Care Sagger Filler Name Role Phone Jay Jay Peterson MD Primary Care Provider +1- [phone] Encounter Details Date Type Department Care Team (Late st Contact Info) Description 08/30/2022 Procedure Pass JOSHUA LW PERIOP DEPT [address] [place] [address] Social History Tobacco Use Types Packs/Day Years [...] on filedocumented in this encounter Care Teams Sagger Filler Relationship Specialty Start Date End Date Jay Jay Peterson MD [address] [place] [id number] PCP - General Internal Medicine 08/09/22 documented as of this encounter Additional Source Comments The information contained in this document represents components of the legal health record. It is not the complete legal health record.[facility]
[2025-05-16 15:18] LABS: Free T4 (Free Thyroxine) 0.84 ng/dL (0.71-1.85); Thyroid Stimulating Hormone 6.55 uIU/mL (0.32-4.0)
== END 2025-05-16 10:11 | disposition home or self-care (01) ==
LOC: HO.HMGCLDS 10:10
PROVIDERS: PCP Internal Medicine; Visit Provider Internal Medicine
DX: E03.9 Hypothyroidism, unspecified (principal)
CPT/HCPCS: 36415; 84439; 84443